=== PATIENT | male | born 1955 | race Caucasian/White ===

== ENCOUNTER 2016-10-19 14:52 | Emergency (ER) | payer MEDICARE, OTHER | END 2016-10-19 16:21 | disposition home or self-care (01) | LOC: ER 14:52 | DX: S42.002A Fracture of unspecified part of left clavicle, initial encounter for closed fracture (principal); W19.XXXA Unspecified fall, initial encounter; Y92.009 Unspecified place in unspecified non-institutional (private) residence as the place of occurrence of the external cause; F17.210 Nicotine dependence, cigarettes, uncomplicated; G89.29 Other chronic pain; M54.9 Dorsalgia, unspecified; Z79.899 Other long term (current) drug therapy; Z79.891 Long term (current) use of opiate analgesic; I10 Essential (primary) hypertension | CPT/HCPCS: 73000; 99070; 99283 ==